=== PATIENT | female | born 1990 | race Caucasian/White ===

== ENCOUNTER 2017-01-20 14:38 | Emergency (ER) | payer OTHER ==
[2017-01-20 14:57] VITALS: BP 118/74; PULSE 85; TEMP 98.6; BMI 31.9
[2017-01-20 15:35] LABS: MCH 26.7 pg (25.7-33.7); MCHC 32.4 g/dl (32.0-36.0); MEAN CELL VOLUME 82.4 fl (80-96); MEAN PLT VOLUME 6.9 fl (7.5-11.1); PLATELET COUNT 442 K/MM3 (134-434); RDW 13.7 % (11.6-15.6); WHITE BLOOD COUNT 14.3 K/mm3 (4.0-10.0)
--- NOTE | 2017-01-20 15:38 | PDOC ---
History of Present Illness - General History Source: Patient Exam Limitations: No Limitations - History of Present Illness Initial Comments: CHIEF COMPLAINT: 26 y/o afebrile female with PMH Dermatomyositis c/o continued joint pain and muscle weakness. HISTORY OF PRESENT ILLNESS: The patient states that she was admitted to [facility] for 1 week and discharged 2 days ago with a diagnosis of Dermatomyositis. The patient was discharged with rx for methotrexate, prednisone, folic acid. She was instructed to f/u with a [employer], which she hasn't done yet. She states she is here because she continues to have pain in her joints and weakness in her upper and lower extremities. She admits she is here in the ER to see a galvanizer zinc. Vital signs on arrival are within normal limits. REVIEW OF SYSTEMS: GENERAL/CONSTITUTIONAL: Subjective fever/chills. No weakness. No weight change. HEAD, EYES, EARS, NOSE AND THROAT: No change in vision. No ear pain or discharge. No sore throat. CARDIOVASCULAR: No chest pain or shortness of breath. RESPIRATORY: No cough, wheezing, or hemoptysis. GASTROINTESTINAL: See history of present illness. GENITOURINARY: No dysuria, frequency, or change in urination. MUSCULOSKELETAL: No joint or muscle swelling or pain. No neck or back pain. SKIN: No rash or easy bruising. NEUROLOGIC: No headache, vertigo, loss of consciousness, or loss of sensation. PHYSICAL EXAM: GENERAL: The patient is awake, alert, and fully oriented, in no acute distress. HEAD: Normal with no signs of trauma. EYES: Pupils equal, round and reactive to light, extraocular movements intact, sclera anicteric, conjunctiva clear. Airway patent without tonsilar edema or erythema. Mucous membranes moist. EXTREMITIES: Normal range of motion. moderate non-pitting edema to right foot. NEUROLOGICAL: Normal speech, normal gait. PSYCH: Normal mood, normal affect. SKIN: Warm, Dry, normal turgor. Erythematous rash to face. finger joints with scaly patches on flexor surfaces. <Dana Chatman - Last Filed: 01/20/17 18:33> <Brenden Addison - Last Filed: 01/23/17 08:02> - General Chief Complaint: Edema Stated Complaint: SWOLLEN LEGS (REFERRED) Time Seen by Provider: 01/20/17 14:48 Past History - Psycho/Social/Smoking Cessation Hx Anxiety: No Suicidal Ideation: No Smoking History: Never smoked Have you smoked in the past 12 months: No Information on smoking cessation initiated: No Hx Alcohol Use: No Drug/Substance Use Hx: No Substance Use Type: None <Dana Chatman - Last Filed: 01/20/17 18:33> <Brenden Addison - Last Filed: 01/23/17 08:02> - Past Medical History Allergies/Adverse Reactions: Allergies Allergy/AdvReac Type Severity Reaction Status Date / Time No Known Allergies Allergy Verified 01/20/17 14:56 Home Medications: Ambulatory Orders Oxycodone HCl/Acetaminophen [Percocet 5-325 mg Tablet] 1 tab PO Q6H #10 tablet MDD 4 01/20/17 *Physical Exam - Vital Signs Last Vital Signs Temp Pulse Resp BP Pulse Ox 98.6 F 85 18 118/74 99 01/20/17 14:49 01/20/17 14:49 01/20/17 14:49 01/20/17 14:49 01/20/17 14:49 <Dana Chatman - Last Filed: 01/20/17 18:33> - Vital Signs Last Vital Signs Temp Pulse Resp BP Pulse Ox 98.6 F 85 18 118/74 99 01/20/17 14:49 01/20/17 14:49 01/20/17 14:49 01/20/17 14:49 01/20/17 14:49 <Brenden Addison - Last Filed: 01/23/17 08:02> ED Treatment Course - LABORATORY CBC & Chemistry Diagram: 01/20/17 15:00 01/20/17 15:00 - ADDITIONAL ORDERS Additional order review: 01/20/17 15:00 RBC 5.03 MCV 82.4 MCHC 32.4 RDW 13.7 MPV 6.9 L <Dana Chatman - Last Filed: 01/20/17 18:33> - LABORATORY CBC & Chemistry Diagram: 01/20/17 15:00 01/20/17 15:00 - ADDITIONAL ORDERS Additional order review: 01/20/17 15:00 RBC 5.03 MCV 82.4 MCHC 32.4 RDW 13.7 MPV 6.9 L - Medications Given in the ED: ED Medications Discontinued Medications Generic Name Dose Route Start Last Admin Trade Name Devon PRN Reason Stop Dose Admin Oxycodone/Acetaminophen 2 combo 01/20/17 16:10 01/20/17 16:26 Percocet 5/325 - PO 01/20/17 16:11 2 combo ONCE ONE Administration <Brenden Addison - Last Filed: 01/23/17 08:02> Medical Decision Making - Medical Decision Making A/P: 26 y/o afebrile female with recently diagnosed Dermatomyositis c/o continued pain and extremity weakness. The patient was just started on PO Prednisone and Methotrexate regimen. She has not followed up with a [employer] Software Engineer yet. Plan is as follows: 1. Labs 2. PO percocet The patient states she feels much better after percocet. Will discharge to home with referral for galvanizer zinc. Also sent rx for percocet for pain. Instructed her it may cause drowsiness. Pt instructed to call galvanizer zinc on Monday and return to the ER with any worsening or concerning symptoms. The patient verbalizes understanding of all instructions, has no further questions and is awaiting discharge. <Dana Chatman - Last Filed: 01/20/17 18:33> - Medical Decision Making 01/23/17 08:01 The patient was seen and evaluated in conjunction with MIN Chatman under my direct supervision, ancillary studies were reviewed. I agree with the plan as outlined by MIN Chatman . <Brenden Addison - Last Filed: 01/23/17 08:02> *DC/Admit/Observation/Transfer <Dana Chatman - Last Filed: 01/20/17 18:33> <Brenden Addison - Last Filed: 01/23/17 08:02> Diagnosis at time of Disposition: Dermatomyositis - Discharge Dispostion Disposition: HOME Condition at time of disposition: Good - Prescriptions Prescriptions: Oxycodone HCl/Acetaminophen [Percocet 5-325 mg Tablet] 1 tab PO Q6H #10 tablet MDD 4 - Referrals Referrals: Ashlee Schulz [Primary Care Provider] - Dk Beach MD [Staff Physician] - (Call on Monday) - Patient Instructions Printed Discharge Instructions: Dermatomyositis Additional Instructions: Discharge Instructions: -Continue taking all medications that were prescribed to you at [facility] -Take Percocet for pain as prescribed; it may cause drowsiness -Follow up with Dr. Beach as soon as possible for further testing and treatment -Return to the ER with any worsening or concerning symptoms Print Language: GUAMANIAN
[2017-01-20 15:50] LABS: ACTIVATED PTT 26.2 SECONDS (26.9-34.4)
[2017-01-20 16:02] LABS: ALBUMIN 3.6 g/dl (3.4-5.0); ALK PHOS 62 U/L (45-117); ANION GAP 10 (8-16); BILIRUBIN,TOTAL 0.3 mg/dL (0.2-1.0); CALCIUM 9.3 mg/dL (8.5-10.1); CO2 25 mmol/L (21-32); CREATININE 0.5 mg/dL (0.55-1.02); GLUCOSE,RANDOM 88 mg/dL (74-106); SGOT/AST 362 U/L (15-37); SGPT/ALT 336 U/L (12-78); TOT PROT 7.8 g/dl (6.4-8.2)
[2017-01-20] MEDS ORDERED: OXYCODONE/APAP 5/325MG COMBO TABLET PO ONE (16:10)
[2017-01-20] MEDS ORDERED: OXYCODONE/APAP 5/325MG COMBO TABLET ONE (16:27)
[2017-01-20 16:51] LABS: ERYTHROCYTE SEDIMENTATION RATE 3 mm/hr (0-20)
== END 2017-01-20 18:51 | disposition home or self-care (01) ==
LOC: JER 14:38
DX: M33.90 Dermatopolymyositis, unspecified, organ involvement unspecified (principal)
CPT/HCPCS: 36415; 80053; 85027; 85610; 85651; 85730; 99282-25